=== PATIENT | female | born 1955 | race Caucasian/White ===

== ENCOUNTER 2021-07-27 14:44 | Emergency (ER) | payer MEDICARE, MEDICAID, SELFPAY ==
[~2021-07-27] VITALS: Ht 170.2 cm; Wt 95.3 kg
[~2021-07-27 14:44] MED LIST: ACTOS; GLYB2.5T4 PO; SIMVASTATIN
[2021-07-27 14:46] VITALS: BP_SYST 181
--- NOTE | 2021-07-27 14:46 | NUR ---
Placed in room 4 . Placed on cardiac cath lab radiology technologist, blood pressure machine and pulse oximeter. To gown for exam. Side rails up. Report given to KATHI MCFARLANE.
[2021-07-27] MEDS ORDERED: MORPHINE 4 MG INJ. 4 MG/ML VIAL IM ONE (16:00)
--- NOTE | 2021-07-27 16:05 | NUR ---
pt reports sore throat md aware dc is delayed
[2021-07-27 16:31] VITALS: BP_SYST 174
--- NOTE | 2021-07-27 16:31 | NUR ---
pcr sent to lab
--- NOTE | 2021-07-27 16:34 | NUR ---
Patient given written and verbal discharge instructions and verbalizes understanding. BETTYE freeman MD discussed with patient the results and treatment provided. Patient in stable condition. ID arm band removed. Patient educated on pain management and to follow up with PMD. Pain Scale 2. Opportunity for questions provided and answered. Medication side effect fact sheet provided.
== END 2021-07-27 16:31 | disposition home or self-care (01) ==
LOC: SED 14:44
DX: U07.1 COVID-19 (principal); G89.29 Other chronic pain; M54.50 Low back pain, unspecified; F11.20 Opioid dependence, uncomplicated; K62.3 Rectal prolapse; J02.9 Acute pharyngitis, unspecified; I10 Essential (primary) hypertension; E11.9 Type 2 diabetes mellitus without complications; Z79.899 Other long term (current) drug therapy
CPT/HCPCS: 96372; 99283; C9803; J2270; U0003

== ENCOUNTER 2022-01-26 23:29 | Emergency (ER) | payer MEDICARE, MEDICAID ==
[~2022-01-26] VITALS: Ht 170.2 cm; Wt 106.1 kg
[2022-01-26 23:57] VITALS: BP_SYST 155
--- NOTE | 2022-01-27 02:28 | NUR ---
LEFT WITHOUT BEING SEEN BY MD
== END 2022-01-27 02:25 | disposition left against medical advice (07) ==
LOC: SED 23:29
DX: K62.89 Other specified diseases of anus and rectum (principal); Z53.21 Procedure and treatment not carried out due to patient leaving prior to being seen by health care provider